=== PATIENT | female | born 1965 | race Caucasian/White ===

== ENCOUNTER 2019-09-12 09:00 | Outpatient (CLI) | payer OTHER | END 2019-09-12 10:00 | disposition home or self-care (01) | LOC: D.MAMMO 09:00 | PROVIDERS: ATTEND Nurse Practitioner Family | DX: Z12.31 Encounter for screening mammogram for malignant neoplasm of breast (principal) ==

== ENCOUNTER → 2021-04-14 08:03 | Outpatient (CLI) | payer MEDICARE, OTHER ==
[2020-11-03 01:31] VITALS: BMI 32.6
[~2021-04-14 08:03] MED LIST: FLOMAX0.4 MG PO; HYDROCODON-ACE1 EAC7 PO; LAMICTAL200 M1 PO; TOPAMAX100 MG PO; TORADOL10 MG PO; ZOLOFT50 MG PO
== END | disposition home or self-care (01) ==
LOC: D.CT
PROVIDERS: ATTEND Internal Medicine Hematology & Oncology
DX: C76.3 Malignant neoplasm of pelvis (principal)